=== PATIENT | female | born 1955 | race Caucasian/White ===

== ENCOUNTER 2023-07-13 08:47 | Outpatient (CLI) | payer OTHER, SELFPAY ==
--- NOTE | ~2023-07-13 | CT_ITS ---
EXAMINATION: CT sinus wo con DATE: 07/13/2023 09:03 INDICATION: Chronic sinusitis TECHNIQUE: Computed tomography (CT) of the paranasal sinuses was performed without contrast. Iterativ e reconstruction technique was employed. Exam dose: 264.97 mGy-cm total exam DLP. COMPARISON: None FINDINGS: There is rightward bowing of the anterior portion of the nasal septum and leftward deviatio n of the nasal septum posteriorly. The ostiomeatal units are patent. Moderately prominent symmetric soft tissue swelling of the nasal turbinates. The left frontal sinus is undeveloped. Small right frontal sinus. The maxillary sinuses are well-developed and aerated bilaterally. There is mild periosteal thickening along the superolateral wall and inferior wall of the right maxillary antrum. Otherwise no mucoperio steal thickening or any air-fluid level or soft tissue opacity of the paranasal sinuses. The mastoid air cells are well-developed and aerated bilaterally. Middle and inner ear apparatus appe ar normal. IMPRESSION: Rightward bowing of the anterior nasal septum and leftward deviation of posterior nasal septum Superolateral and inferior mild mucoperiosteal thickening of the right maxillary sinus; paranasal sin uses, ostiomeatal units and mastoid air cells are otherwise normal Reviewed, dictated and finalized at [facility]. Reviewed, dictated and finalized at [facility] [employer] IMPRESSION: Rightward bowing of the anterior nasal septum and leftward deviati on of posterior nasal septum Superolateral and inferior mild mucoperiosteal thickening of the right maxillar y sinus; paranasal sinuses, ostiomeatal units and mastoid air cells are otherwi se normal
== END 2023-07-13 08:48 ==
LOC: MICIMG 08:50
PROVIDERS: PCP Otolaryngology; Visit Provider Otolaryngology
DX: J32.9 Chronic sinusitis, unspecified (principal)
CPT/HCPCS: 70486